=== PATIENT | male | born 1980 | race Caucasian/White ===

== ENCOUNTER 2017-01-23 13:09 | Inpatient (IN) | payer MEDICAID ==
[~2017-01-23] VITALS: Ht 170.2 cm; Wt 77.2 kg
[2017-01-23 15:35] LABS: CALCIUM 8.6 mg/dL (8.5-10.1); CARBON DIOXIDE 26.5 mmol/L (21-32); CHLORIDE SERUM 95 mmol/L (98-107); CREATININE SERUM 0.8 mg/dL (0.7-1.3); GFR1 > 60 mL/min; GLUCOSE SERUM 116 mg/dL (74-106); SODIUM SERUM 129 mmol/L (136-145)
[2017-01-23 15:40] LABS: ALBUMIN 2.3 g/dL (3.4-5.0); ALKALINE PHOSPHATASE 97 U/L (46-116); ALT/SGPT 48 U/L (16-63); AST/SGOT 97 U/L (15-37); BILIRUBIN TOTAL 0.38 mg/dL (0.20-1.00); TOTAL PROTEIN, SERUM 7.3 g/dL (6.4-8.2)
[2017-01-23 15:53] LABS: RED CELL DISTRIBUTION WIDTH 13.4 % (11.5-14.5)
[2017-01-23 15:54] LABS: PLATELET COUNT 421 x10^3mcL (130-400)
[2017-01-23 17:30] LABS: T3 TOTAL 0.76 ng/mL
[2017-01-23 17:31] LABS: MAGNESIUM 1.8 mg/dL (1.8-2.4); PHOSPHOROUS 2.7 mg/dL (2.5-4.9)
[2017-01-23 17:37] LABS: FREE T4 1.41 ng/dL (0.76-1.46); FREE THYROXINE INDEX 2.6 ug/dL (1.4-4.5); T4(THYROXINE) 6.6 ug/dL (4.7-13.3)
[2017-01-23 17:38] LABS: CHOLESTEROL/HDL RATIO 5.2
[2017-01-23 17:50] LABS: ATYPICAL LYMPH 2 %; BAND NEUTROPHIL 30 % (0-10); MONOCYTE 12 % (0-7); SEGMENTED NEUTROPHILS 50 % (37-75)
[2017-01-23 17:51] LABS: METAMYELOCTE 1 % (0-2); PLATELET MORPHOLOGY PLATELETS INCREASED; rbc morphology (normal/abnorm) NORMAL (NORMAL)
[2017-01-23 18:23] VITALS: BP 135/90
[2017-01-23 18:26] VITALS: Ht 170.2 cm; Wt 77.2 kg
[2017-01-23 19:11] LABS: AMPHETAMINE QUAL UR POSITIVE (NEG <=1000)
[2017-01-23 19:55] LABS: UA SPECIFIC GRAVITY 1.025 (1.005-1.035); microscopic required? YES; urine erythrocyte 1+ (NEGATIVE)
[2017-01-24] VITALS (7 sets, daily range): BP systolic 108–122; BP diastolic 58–73
[2017-01-24 07:22] LABS: PLATELET COUNT 356 x10^3mcL (130-400); RED CELL DISTRIBUTION WIDTH 13.6 % (11.5-14.5)
[2017-01-24 07:40] LABS: CALCIUM 7.4 mg/dL (8.5-10.1); CARBON DIOXIDE 26.7 mmol/L (21-32); CHLORIDE SERUM 99 mmol/L (98-107); CREATININE SERUM 0.8 mg/dL (0.7-1.3); GFR1 > 60 mL/min; GLUCOSE SERUM 130 mg/dL (74-106); MAGNESIUM 1.6 mg/dL (1.8-2.4); PHOSPHOROUS 3.4 mg/dL (2.5-4.9); POTASSIUM SERUM 4.1 mmol/L (3.5-5.1); SODIUM SERUM 131 mmol/L (136-145)
[2017-01-24 09:37] LABS: ATYPICAL LYMPH 1 %; BAND NEUTROPHIL 31 % (0-10); BASOPHIL 0 % (0-2); METAMYELOCTE 1 % (0-2); MONOCYTE 11 % (0-7); SEGMENTED NEUTROPHILS 47 % (37-75)
[2017-01-25 06:06] VITALS: BP 121/76
[2017-01-25 06:36] LABS: PLATELET COUNT 366 x10^3mcL (130-400)
[2017-01-25 07:30] LABS: CALCIUM 7.5 mg/dL (8.5-10.1); CARBON DIOXIDE 27.8 mmol/L (21-32); CHLORIDE SERUM 102 mmol/L (98-107); CREATININE SERUM 0.6 mg/dL (0.7-1.3); GFR1 > 60 mL/min; GLUCOSE SERUM 81 mg/dL (74-106); MAGNESIUM 1.6 mg/dL (1.8-2.4); POTASSIUM SERUM 4.1 mmol/L (3.5-5.1); SODIUM SERUM 133 mmol/L (136-145)
[2017-01-25 10:30] VITALS: BP 120/64
[2017-01-25 12:09] LABS: BAND NEUTROPHIL 27 % (0-10); BASOPHIL 0 % (0-2); METAMYELOCTE 1 % (0-2); MONOCYTE 11 % (0-7); SEGMENTED NEUTROPHILS 50 % (37-75)
[2017-01-25 12:10] LABS: rbc morphology (normal/abnorm) ABNORMAL (NORMAL)
[2017-01-25 13:44] VITALS: BP 115/55
[2017-01-25 16:05] VITALS: BP 109/68
[2017-01-25 21:49] VITALS: BP 116/67
[2017-01-26] VITALS (14 sets, daily range): BP systolic 106–135; BP diastolic 56–79
[2017-01-26 06:37] LABS: RED CELL DISTRIBUTION WIDTH 13.7 % (11.5-14.5)
[2017-01-26 06:41] LABS: PLATELET COUNT 429 x10^3mcL (130-400)
[2017-01-26 06:52] LABS: CALCIUM 7.7 mg/dL (8.5-10.1); CARBON DIOXIDE 29.4 mmol/L (21-32); CHLORIDE SERUM 102 mmol/L (98-107); CREATININE SERUM 0.7 mg/dL (0.7-1.3); GFR1 > 60 mL/min; GLUCOSE SERUM 104 mg/dL (74-106); MAGNESIUM 1.9 mg/dL (1.8-2.4); PHOSPHOROUS 3.6 mg/dL (2.5-4.9); POTASSIUM SERUM 4.2 mmol/L (3.5-5.1); SODIUM SERUM 134 mmol/L (136-145)
[2017-01-26 11:19] LABS: ATYPICAL LYMPH 4 %; BAND NEUTROPHIL 4 % (0-10); BASOPHIL 0 % (0-2); MONOCYTE 11 % (0-7); SEGMENTED NEUTROPHILS 71 % (37-75)
[2017-01-26 11:20] LABS: rbc morphology (normal/abnorm) NORMAL (NORMAL)
[2017-01-26 11:21] LABS: PLATELET MORPHOLOGY PLATELETS INCREASED
[2017-01-27 01:20] VITALS: BP 118/73
[2017-01-27 04:19] VITALS: BP 116/70
[2017-01-27 05:29] VITALS: BP 127/72
[2017-01-27 06:15] LABS: RED CELL DISTRIBUTION WIDTH 13.4 % (11.5-14.5)
[2017-01-27 06:36] LABS: CALCIUM 7.8 mg/dL (8.5-10.1); CARBON DIOXIDE 26.9 mmol/L (21-32); CHLORIDE SERUM 105 mmol/L (98-107); CREATININE SERUM 0.8 mg/dL (0.7-1.3); GFR1 > 60 mL/min; GLUCOSE SERUM 97 mg/dL (74-106); MAGNESIUM 1.7 mg/dL (1.8-2.4); PHOSPHOROUS 3.4 mg/dL (2.5-4.9); POTASSIUM SERUM 4.3 mmol/L (3.5-5.1); SODIUM SERUM 140 mmol/L (136-145)
[2017-01-27 07:22] LABS: PLATELET COUNT 491 x10^3mcL (130-400)
[2017-01-27 08:36] LABS: ATYPICAL LYMPH 3 %; BAND NEUTROPHIL 5 % (0-10); BASOPHIL 0 % (0-2); MONOCYTE 8 % (0-7); PLATELET MORPHOLOGY PLATELETS INCREASED; SEGMENTED NEUTROPHILS 71 % (37-75)
[2017-01-27 08:37] LABS: rbc morphology (normal/abnorm) NORMAL (NORMAL)
[2017-01-27 17:00] VITALS: BP 118/64
[2017-01-27 21:33] VITALS: BP 104/60
[2017-01-28 05:44] VITALS: BP 128/70
[2017-01-28 09:29] VITALS: BP 114/62
[2017-01-28 10:20] LABS: BASOPHIL % 0.8 % (0-2); RED CELL DISTRIBUTION WIDTH 13.8 % (11.5-14.5)
[2017-01-28 10:22] LABS: PLATELET COUNT 554 x10^3mcL (130-400)
[2017-01-28 17:52] VITALS: BP 114/14
[2017-01-28 21:25] VITALS: BP 115/61
[2017-01-29 06:12] VITALS: BP 123/69
[2017-01-29 07:17] LABS: BASOPHIL % 0.3 % (0-2); PLATELET COUNT 614 x10^3mcL (130-400); RED CELL DISTRIBUTION WIDTH 13.9 % (11.5-14.5)
[2017-01-29 11:13] VITALS: BP 117/61
[2017-01-29 13:53] VITALS: BP 117/64
[2017-01-29 16:49] VITALS: BP 105/50
[2017-01-29 21:42] VITALS: BP 107/55
[2017-01-30 06:22] VITALS: BP 107/57
[2017-01-30 06:24] LABS: CALCIUM 7.7 mg/dL (8.5-10.1); CARBON DIOXIDE 29.5 mmol/L (21-32); CHLORIDE SERUM 105 mmol/L (98-107); CREATININE SERUM 0.7 mg/dL (0.7-1.3); GFR1 > 60 mL/min; GLUCOSE SERUM 129 mg/dL (74-106); POTASSIUM SERUM 4.2 mmol/L (3.5-5.1); SODIUM SERUM 138 mmol/L (136-145)
[2017-01-30 06:38] LABS: BASOPHIL % 0.3 % (0-2); RED CELL DISTRIBUTION WIDTH 13.5 % (11.5-14.5)
[2017-01-30 07:41] LABS: MAGNESIUM 1.7 mg/dL (1.8-2.4); PLATELET COUNT 658 x10^3mcL (130-400)
[2017-01-30 08:46] VITALS: BP 90/55
[2017-01-30 17:30] VITALS: BP 120/59
[2017-01-30 20:59] VITALS: BP 115/71
[2017-01-31 06:01] VITALS: BP 98/59
[2017-01-31 06:15] LABS: BASOPHIL % 0.5 % (0-2); RED CELL DISTRIBUTION WIDTH 14.1 % (11.5-14.5)
[2017-01-31 06:38] LABS: CALCIUM 8.3 mg/dL (8.5-10.1); CARBON DIOXIDE 29.2 mmol/L (21-32); CHLORIDE SERUM 104 mmol/L (98-107); CREATININE SERUM 0.8 mg/dL (0.7-1.3); GFR1 > 60 mL/min; GLUCOSE SERUM 97 mg/dL (74-106); MAGNESIUM 1.9 mg/dL (1.8-2.4); PHOSPHOROUS 3.9 mg/dL (2.5-4.9); POTASSIUM SERUM 4.2 mmol/L (3.5-5.1); SODIUM SERUM 137 mmol/L (136-145)
[2017-01-31 07:24] LABS: PLATELET COUNT 725 x10^3mcL (130-400)
[2017-01-31 08:44] VITALS: BP 115/66
[2017-01-31 17:27] VITALS: BP 95/59
[2017-01-31 21:43] VITALS: BP 112/60
[2017-02-01 05:56] VITALS: BP 111/58
[2017-02-01 06:44] LABS: BASOPHIL % 0.5 % (0-2); RED CELL DISTRIBUTION WIDTH 14.5 % (11.5-14.5)
[2017-02-01 07:12] LABS: PLATELET COUNT 849 x10^3mcL (130-400)
[2017-02-01 07:22] LABS: CALCIUM 8.3 mg/dL (8.5-10.1); CARBON DIOXIDE 26.9 mmol/L (21-32); CHLORIDE SERUM 102 mmol/L (98-107); CREATININE SERUM 0.8 mg/dL (0.7-1.3); GFR1 > 60 mL/min; GLUCOSE SERUM 112 mg/dL (74-106); POTASSIUM SERUM 4.1 mmol/L (3.5-5.1); SODIUM SERUM 138 mmol/L (136-145)
[2017-02-01 11:30] VITALS: BP 133/83
[2017-02-01 18:37] VITALS: BP 98/48
[2017-02-02 06:29] VITALS: BP 99/45
[2017-02-02 06:37] LABS: CARBON DIOXIDE 28.1 mmol/L (21-32); CHLORIDE SERUM 104 mmol/L (98-107); CREATININE SERUM 0.9 mg/dL (0.7-1.3); GFR1 > 60 mL/min; GLUCOSE SERUM 97 mg/dL (74-106); MAGNESIUM 1.8 mg/dL (1.8-2.4); PHOSPHOROUS 4.2 mg/dL (2.5-4.9); POTASSIUM SERUM 4.1 mmol/L (3.5-5.1); SODIUM SERUM 136 mmol/L (136-145)
[2017-02-02 07:57] LABS: BASOPHIL % 0.6 % (0-2); RED CELL DISTRIBUTION WIDTH 14.2 % (11.5-14.5)
[2017-02-02 07:59] LABS: PLATELET COUNT 864 x10^3mcL (130-400)
[2017-02-02 10:13] VITALS: BP 109/59
[2017-02-02 17:57] VITALS: BP 107/55
[2017-02-02 23:10] VITALS: BP 101/46
[2017-02-03 06:05] LABS: BASOPHIL % 0.6 % (0-2); RED CELL DISTRIBUTION WIDTH 14.5 % (11.5-14.5)
[2017-02-03 06:40] LABS: CALCIUM 8.3 mg/dL (8.5-10.1); CARBON DIOXIDE 27.2 mmol/L (21-32); CHLORIDE SERUM 104 mmol/L (98-107); CREATININE SERUM 0.9 mg/dL (0.7-1.3); GFR1 > 60 mL/min; GLUCOSE SERUM 114 mg/dL (74-106); MAGNESIUM 1.8 mg/dL (1.8-2.4); PHOSPHOROUS 4.2 mg/dL (2.5-4.9); POTASSIUM SERUM 4.1 mmol/L (3.5-5.1); SODIUM SERUM 137 mmol/L (136-145)
[2017-02-03 07:02] VITALS: BP 96/44
[2017-02-03 07:43] LABS: PLATELET COUNT 895 x10^3mcL (130-400)
[2017-02-03 09:29] LABS: rbc morphology (normal/abnorm) ABNORMAL (NORMAL)
[2017-02-03 12:00] VITALS: BP 107/55
[2017-02-03 16:08] VITALS: BP 104/47
[2017-02-04] VITALS (7 sets, daily range): BP systolic 91–108; BP diastolic 50–63
[2017-02-04 06:45] LABS: CALCIUM 8.5 mg/dL (8.5-10.1); CHLORIDE SERUM 106 mmol/L (98-107); CREATININE SERUM 0.8 mg/dL (0.7-1.3); GFR1 > 60 mL/min; GLUCOSE SERUM 103 mg/dL (74-106); MAGNESIUM 1.9 mg/dL (1.8-2.4); PHOSPHOROUS 4.6 mg/dL (2.5-4.9); POTASSIUM SERUM 3.9 mmol/L (3.5-5.1); SODIUM SERUM 141 mmol/L (136-145)
[2017-02-04 06:47] LABS: RED CELL DISTRIBUTION WIDTH 14.8 % (11.5-14.5)
[2017-02-04 06:48] LABS: PLATELET COUNT 1070 x10^3mcL (130-400)
[2017-02-04 07:30] LABS: MONOCYTE 12 % (0-7); SEGMENTED NEUTROPHILS 58 % (37-75); rbc morphology (normal/abnorm) ABNORMAL (NORMAL)
[2017-02-04 07:33] LABS: PLATELET MORPHOLOGY PLATELETS INCREASED
[2017-02-04 16:50] LABS: BASOPHIL % 0.7 % (0-2)
[2017-02-04 16:53] LABS: RED CELL DISTRIBUTION WIDTH 15.8 % (11.5-14.5)
[2017-02-04 16:54] LABS: PLATELET COUNT 1107 x10^3mcL (130-400)
[2017-02-05 06:04] VITALS: BP 114/46
[2017-02-05 09:30] VITALS: BP 120/62
[2017-02-05] MEDS ORDERED: FERL PO (11:40)
[2017-02-05] MEDS ORDERED: QUETIAPINE FUMA25 M1 PO (11:41)
[2017-02-05] MEDS ORDERED: MAG PO (11:41)
[2017-02-05] MEDS ORDERED: LAC PO (11:42)
[2017-02-05] MEDS ORDERED: COL100 PO (11:42)
[2017-02-05] MEDS ORDERED: VITC PO (11:42)
[2017-02-05] MEDS ORDERED: THERA TABS1 TAB PO (11:43)
[2017-02-05] MEDS ORDERED: ZOS3PM IV (11:46)
[2017-02-05] MEDS ORDERED: MSC15 PO (12:18)
[2017-02-05] MEDS ORDERED: NEU300 PO (13:00)
[2017-02-05] MEDS ORDERED: ACETAMINOPHEN-H1 TA1 PO (13:00)
[2017-02-05] MEDS ORDERED: TYL325 PO (13:02)
[2017-02-05 13:09] VITALS: BP 120/62
[2017-02-05] MEDS ORDERED: HEP100I IV (13:23)
== END 2017-02-05 16:00 | DRG 317 ==
LOC: ED 13:09 → MU 15:02 → DU 15:02 → MU 15:02 → DU 18:00 → MU 01-24 06:10
PROVIDERS: Emergency Medicine; Family Medicine; Surgery; ADMIT Family Medicine
PROC: 0KN70ZZ Release Right Upper Arm Muscle, Open Approach (ICD-10-PCS; 2017-01-23)
PROC: 05HM33Z Insertion of Infusion Device into Right Internal Jugular Vein, Percutaneous Approach (ICD-10-PCS; 2017-01-23)
PROC: 0J9G0ZZ Drainage of Right Lower Arm Subcutaneous Tissue and Fascia, Open Approach (ICD-10-PCS; principal; 2017-01-23 20:30)
PROC: 0KB70ZZ Excision of Right Upper Arm Muscle, Open Approach (ICD-10-PCS; 2017-01-25)
PROC: 0KB50ZZ Excision of Right Shoulder Muscle, Open Approach (ICD-10-PCS; 2017-01-25)
PROC: 0JQD0ZZ Repair Right Upper Arm Subcutaneous Tissue and Fascia, Open Approach (ICD-10-PCS; 2017-01-27)
PROC: 0JQG0ZZ Repair Right Lower Arm Subcutaneous Tissue and Fascia, Open Approach (ICD-10-PCS; 2017-01-27)
PROC: 0JB70ZZ Excision of Back Subcutaneous Tissue and Fascia, Open Approach (ICD-10-PCS; 2017-01-29)
PROC: 0JQD0ZZ Repair Right Upper Arm Subcutaneous Tissue and Fascia, Open Approach (ICD-10-PCS; 2017-01-29)
PROC: 2W0 Placement, Anatomical Regions, Change (ICD-10-PCS; 2017-02-01)
PROC: 0WQ Anatomical Regions, General, Repair (ICD-10-PCS; 2017-02-01)
DX: M72.6 Necrotizing fasciitis (principal); N17.0 Acute kidney failure with tubular necrosis; E43 Unspecified severe protein-calorie malnutrition; E87.1 Hypo-osmolality and hyponatremia; E83.42 Hypomagnesemia; F15.20 Other stimulant dependence, uncomplicated; F13.20 Sedative, hypnotic or anxiolytic dependence, uncomplicated; L02.413 Cutaneous abscess of right upper limb; B95.4 Other streptococcus as the cause of diseases classified elsewhere; F11.288 Opioid dependence with other opioid-induced disorder; L03.114 Cellulitis of left upper limb; F31.12 Bipolar disorder, current episode manic without psychotic features, moderate; R73.03 Prediabetes; D64.9 Anemia, unspecified; F12.20 Cannabis dependence, uncomplicated; Z68.26 Body mass index [BMI] 26.0-26.9, adult
CPT/HCPCS: 80307; 82962; 83880; 84439; 90715; 97110-GP; J0690; J1170; J1642; J1720; J1885; J1940; J2175; J2250; J2270; J2405; J2543; J2704; J3010; J3370; J3475; J3490; J7030; J7050; J7120; Q0092